=== PATIENT | male | born 1995 | race Caucasian/White ===

== ENCOUNTER 2025-08-16 03:40 | Emergency (ER) | payer OTHER, SELFPAY ==
[2025-08-16] VITALS (23 sets, daily range): BP systolic 101–130; BP diastolic 60–95; PULSE 75–122; RESP 8–18; TEMP 36.6; O2SAT 94–100; BMI 25.8
[2025-08-16] MEDS: dilTIAZem 5 MG/ML inj 20 MG IVP (05:31)
--- OUTSIDE RECORDS SUMMARY | 2025-08-16 05:50 | XMS_ITS | Clinical Summary ---
Author Organization [facility] Address [address] [place] [id number] Care Team Providers Care Blueberry Grower Name Role Phone Anabella Pickard MD Primary Care Provider + Allergies No known active allergies Medications MedicationSigDispense QuantityRefillsLast FilledStart DateEnd DateStatus propranoloL 20 mg tablet Indications:PalpitationsTake 1-2 times daily as needed for palpitations. 90 Tablet 5Active sertraline (ZOLOFT) 50 mg tablet Take 50 mg by mouth once daily.Active Active Problems No known active problems Immunizations ImmunizationAdministration DatesNext DueCOVID-19 vaccine (Moderna 100mcg/0.5mL) MD SPENSERV110/17/2020,10/17/2020,1DTP-HIB1996,1996,1996 DTaP03/25/2001,08/24/1997DTaP-HIB (TriHIBIT)1996,1996,1996HIB HbOC (HibTITER)08/24/1997Hepatitis B (Peds)1996,1996,1996, 1996Hepatitis B, Wkdfetkzjka1996Hib Conjugate, Bi[place]one30/17/1997 Human Papilloma Virus Hlhapnl7006/16/2013,01/27/2013,11/11/2012Inactivated Polio Tahgzis4303/25/2001Influenza A (H1N1), Inactivated (Age >=3 Years)07/27/2009 Influenza A (H1N1), Live Ztpbhwfpfw05/05/2012,05/03/2009,04/29/2008Influenza Virus, Uqlcoecltxn04/19/2022,06/13/2021,06/18/2019,08/11/2018,07/25/2017, 06/16/2013,06/27/2011,06/10/2010,07/27/2009,07/29/2007MMR10/12/2019,03/25/2001, 05/31/1997Meningococcal Mcv4, Unspecified Oksjknydknr80/06/2013,05/20/2007 Meningococcal Vaccine (Menactra)11/11/2012,05/20/2007Oral Polio Vaccine 1996,1996,1996Tdap03/02/2018,03/09/2007Varicella Vaccine 05/20/2007,05/31/1997 Family History Medical HistoryRelationNameCommentsArrhythmiaFatherHyperlipidemiaFather HypertensionFatherHeart attackMaternal GrandmotherHyperlipidemiaMother HypertensionMotherThyroid DiseaseMotherDiabetesOtherone of the grandparents RelationNameStatusCommentsFatherAliveMaternal GrandmotherMotherAliveOther Social History Tobacco UseTypesPacks/DayYears UsedDateSmoking Tobacco: NeverSmokeless Tobacco: Never Tobacco Cessation:Counseling Given: Not Answered Alcohol UseStandard Drinks/WeekCommentsYes0 (1 standard drink = 0.6 oz pure alcohol)moderatePHQ-2AnswerDate RecordedPHQ-2 TOTAL YHISN55710/10/2023Social ConnectionsAnswerDate RecordedDo you often feel lonely or isolated from those around you?Financial Resource StrainAnswerDate RecordedDifficulty of Paying Living Bzaaoeyh480/01/2024ifficulty of Paying Living ExpensesNot on file 08/08/2024Food InsecurityAnswerDate RecordedDo you worry your food will run out before you are able to buy more?Transportation NeedsAnswerDate RecordedDoes lack of transportation keep you from medical appointments?1 08/08/2024oes lack of transportation keep you from work, meetings or getting things that you need?Housing StabilityAnswerDate RecordedWhat is your housing situation today?UtilitiesAnswerDate RecordedDo you have trouble paying for utilities (for example, heat, electricity, water, phone)?1 08/08/2024Sex and Gender InformationValueDate RecordedSex Assigned at BirthNot on fileLegal MetAqkr8903/16/2024 7:04 AM CDTGender IdentityNot on fileSexual OrientationNot on file Last Filed Vital Signs Vital SignReadingTime TakenCommentsBlood Gssvyrwo957/9411/18/2024 5:39 PM CDT Thnse843511/18/2024 5:37 PM MVJYkrrrpkqttn55.3 ??C (99.1 ??F)11/18/2024 5:37 PM CDTRespiratory Rate--Oxygen Saturation--Inhaled Oxygen Concentration--Godggu10 kg (205 lb)11/18/2024 5:37 PM NRYKhnync920.2 cm (6' 0.5)08/09/2024 2:29 PM RELISH BLENDER Body Mass Index27.42110/10/2023 2:29 PM RELISH BLENDER Plan of Treatment Health MaintenanceDue DateLast DoneCommentsHIV for age 15-65002/22/2011Hepatitis C screening for age 18-7902/22/2014COVID-19 vaccine series (2024- season) , 10/17/2020, 09/18/2020Influenza Vaccine (#1)2025 07/27/2022, 06/13/2021, 06/18/2019, Additional history existsBMI (ht and wt on same day) for age 18+epression screening for age 12+ /10/2023, 03/22/2024Tetanus epytexd39, 03/09/2007 RSV vaccine for adults or (1 - 1-dose 75+ series)02/22/2071Hepatitis B series for 19+Vnnjzhume41/25/1997, 1996, 1996, Additional history existsHPV series for age 9-29Knazoaqdn31/09/2013, 01/27/2013, 11/11/2012 Pneumococcal series for age 6-49Aged OutNo longer eligible based on patient's age to complete this topic Care Teams Team MemberRelationshipSpecialtyStart DateEnd Date Anabella Pickard MD [address] [place] [address] [facility]
[2025-08-16 06:03] LABS: Hematocrit* 44.7 % (37.0-53.0); Hemoglobin* 15.4 gm/dL (13.5-17.5); Lymphocytes Absolute Auto 1.80 K/uL (0.90-2.90); Mean Corpuscular HGB Conc 35 gm/dL (32-36); Mean Corpuscular Hemoglobin 30 pg (26-34); Mean Corpuscular Volume 87 fL (80-100); Red Blood Count* 5.13 m/uL (4.30-5.90); White Blood Count* 5.81 K/uL (4.50-11.00)
[2025-08-16 06:04] LABS: Anion Gap 14 mEq/L (7-15); Blood Urea Nitrogen* 10 mg/dL (5-24); Carbon Dioxide* 20 mmol/L (20-32); Chloride* 105 mmol/L (96-114); Creatinine* 0.7 mg/dL (0.5-1.5); Estimated Glomerular Filt Rate 128 ml/min; Immature Granulocytes Abs Auto 0.00 K/uL (0.00-0.30); Immature Granulocytes Pct Auto 0.7 %; Potassium* 4.1 mmol/L (3.6-5.1); Slide Review Reflex No; Sodium* 139 mmol/L (135-149)
[2025-08-16 06:05] LABS: Calcium* 8.7 mg/dL (8.4-10.6); Ethanol* 0.02 % (0.01-0.03); Glucose* 99 mg/dL (60-115)
--- NOTE | 2025-08-16 06:28 | ED.GENADULT ---
HPI - General Adult General Chief complaint: Arrhythmia/Palpitations Stated complaint: Irregular Heartbeat Time Seen by Provider: 08/16/25 05:29 History of Present Illness HPI narrative: patient awoke around 0200 with rapid HR, per his apple watch rate of 177, denies chest pain, denies SOB. reports he has a hx of PVC that he takes propranolol PRN for, tried a dose when the symptoms started at 0200 with out rel(ie)f. 30-year-old young man presenting to the emergency department with concern of palpitations. Is not reporting Dizziness or lightheadedness. Does have a history of Palpitations and known PVCs. Has been given propranolol 20 mg and takes this twice daily. No other apparent arrhythmia history. Does admit to having quite a bit of alcohol last night. With significant other accompanies him here today had been trying to do a dry month. He woke this morning noting more intense palpitations and Watch said 177 for heart rate and was just not feeling very well. Does denies any other substances other than marijuana a few days ago. He does also smoke nicotine. 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 Was wondering if there is anything else he could be doing. Concerns expressed also of insurance not kicking in until the end of this year. Review of Systems Status of ROS: Reports: 6 or more systems reviewed and unremarkable except as noted in History and below [facility] Social History Do you use any of these nicotine containing products: None How often do you have a drink containing alcohol: monthly or less AUDIT-C Alcohol total score: 1 Non-prescribed substance use: denies use Exam Narrative: Exam Narrative: Ambulatory into the emergency department. Looks like he does not feel very good. Is easily conversant however. Breathing easily. Lungs are clear. Heart in elevated rate and irregularly irregular. Distant. Extremities are well perfused and without edema. Const: Vital Signs, click to edit/add: Vital Signs - 24 hr 08/16/25 03:40 08/16/25 03:50 08/16/25 05:32 Temperature 98 F Pulse Rate 87 Pulse Rate [Pulse Oximeter] 119 H Respiratory Rate 16 16 Blood Pressure 107/63 Blood Pressure [Ri ght Upper Arm] 130/95 H Pulse Oximetry 98 98 97 Oxygen Delivery Me thod Room Air 08/16/25 05:33 08/16/25 05:45 08/16/25 05:46 Temperature Pulse Rate 88 79 75 Pulse Rate [Pulse Oximeter] Respiratory Rate 8 L 16 Blood Pressure 106/60 Blood Pressure [Ri ght Upper Arm] Pulse Oximetry 97 97 94 Oxygen Delivery Me thod 08/16/25 06:00 08/16/25 06:02 08/16/25 06:16 Temperature Pulse Rate 76 93 91 Pulse Rate [Pulse Oximeter] Respiratory Rate 18 18 18 Blood Pressure 107/69 Blood Pressure [Ri ght Upper Arm] Pulse Oximetry 97 96 96 Oxygen Delivery Me thod 08/16/25 06:17 08/16/25 06:30 08/16/25 06:32 Temperature Pulse Rate 91 96 96 Pulse Rate [Pulse Oximeter] Respiratory Rate 16 16 Blood Pressure 115/67 110/75 Blood Pressure [Ri ght Upper Arm] Pulse Oximetry 96 97 97 Oxygen Delivery Me thod 08/16/25 06:45 08/16/25 06:47 08/16/25 06:50 Temperature Pulse Rate 94 92 93 Pulse Rate [Pulse Oximeter] Respiratory Rate 18 16 16 Blood Pressure 119/90 H Blood Pressure [Ri ght Upper Arm] Pulse Oximetry 97 97 98 Oxygen Delivery Me thod 08/16/25 07:00 08/16/25 07:02 08/16/25 07:15 Temperature Pulse Rate 90 94 122 H Pulse Rate [Pulse Oximeter] Respiratory Rate 16 16 16 Blood Pressure 120/85 Blood Pressure [Ri ght Upper Arm] Pulse Oximetry 98 100 99 Oxygen Delivery Me thod 08/16/25 07:17 08/16/25 07:30 08/16/25 07:32 Temperature Pulse Rate 101 H 113 H 98 Pulse Rate [Pulse Oximeter] Respiratory Rate 18 12 16 Blood Pressure 119/84 101/63 Blood Pressure [Ri ght Upper Arm] Pulse Oximetry 100 99 98 Oxygen Delivery Me thod 08/16/25 07:45 08/16/25 07:50 Temperature Pulse Rate 97 80 Pulse Rate [Pulse Oximeter] Respiratory Rate 18 16 Blood Pressure 119/77 Blood Pressure [Ri ght Upper Arm] Pulse Oximetry 100 97 Oxygen Delivery Me thod Documenting provider has reviewed patient's vital signs: yes Course Vital Signs Vital signs: Initial Vital Signs Temperature 98 F 08/16/25 03:40 Temperature Source Temporal Artery Scan 08/16/25 03:40 Pulse Rate 119 H 08/16/25 03:40 Respiratory Rate 16 08/16/25 03:40 Blood Pressure 130/95 H 08/16/25 03:40 Blood Pressure Mean 106 H 08/16/25 03:40 Blood Pressure Position Semi-Fowlers 08/16/25 03:40 Pulse Oximetry 98 08/16/25 03:40 Oxygen Delivery Method Room Air 08/16/25 03:40 Vital Signs Temperature 98 F 08/16/25 03:40 Pulse Rate 119 H 08/16/25 03:40 Respiratory Rate 16 08/16/25 03:40 Blood Pressure 130/95 H 08/16/25 03:40 Pulse Oximetry 98 08/16/25 03:40 Oxygen Delivery Method Room Air 08/16/25 03:40 Temperature 98 F 08/16/25 03:40 Pulse Rate 80 08/16/25 07:50 Respiratory Rate 16 08/16/25 07:50 Blood Pressure 119/77 08/16/25 07:50 Pulse Oximetry 97 08/16/25 07:50 Oxygen Delivery Method Room Air 08/16/25 03:40 Medications Administered Medications: Discontinued Medications Generic Name Dose Route Start Last Admin Trade Name Freq PRN Reason Stop Dose Admin Diltiazem HCl 20 mg 08/16/25 05:51 08/16/25 05:31 Diltiazem 5 Mg/Ml Inj IVP 08/16/25 05:52 20 mg ONCE ONE Administration Sodium Chloride 1,000 mls @ 1,000 mls/hr 08/16/25 05:51 08/16/25 06:30 0.9 % Sodium Chloride 1000 Ml IV 08/16/25 06:50 Infused .Q1H ONE Infusion Medical Decision Making [facility] Narrative Medical decision making narrative: Initial EKG independently reviewed by me does confirm atrial fibrillation with RVR at a rate of 137. PVCs are evident as well Placed on quality assurance monitor and oximetry. Monitoring on quality assurance monitor is throwing PVCs as well and these are symptomatic. These have been unifocal. Initiated IV fluids with normal saline and given 20 mg of diltiazem. Rate has slowed some but remains in elevated rate atrial fibrillation with PVCs. Labs are unremarkable with low normal magnesium. Is clear that onset began sometime overnight. Would be candidate for electrical cardioversion. First known atrial fibrillation. Anticipating replacing magnesium ahead of cardioversion. Awaiting support for cardioversion Informed consent obtained. Anesthesia now available, present. Luis was up to the bathroom and back for the 2nd or 3rd time and appears to have spontaneously converted when he got back to the bed. Repeat EKG independently reviewed by me at this time shows normal sinus rhythm at a rate of 75. Notably feels better. Already has propranolol. Only singular AFib episode with likely trigger being alcohol. Do not think needs change in medication management at this time. See patient discharge plan for further discussion Stay well hydrated with water or similar. No restrictions to activity at this time. Would message your primary care provider to review events of today and consider further evaluation. At this time continue your propranolol as prescribed. Take care with your alcohol consumption as discussed. A course do what you can to quit smoking as well. Might be some resources yet through [employer] -- see handout pamphlet. Should this atrial fibrillation recur, you can certainly try some of those maneuvers to increase intra-abdominal pressure that we discussed though I am not sure of effectivity for AFib as opposed to SVT. Should not hurt though. If you continue to have these symptoms, return to the emergency department. Lab Data Lab results reviewed: Yes I reviewed the patient's lab results Labs: Lab Results 08/16/25 Range/Units 04:46 WBC 5.81 (4.50-11.00) K/uL RBC 5.13 (4.30-5.90) m/uL Hgb 15.4 (13.5-17.5) gm/dL Hct 44.7 (37.0-53.0) % MCV 87 (80-100) fL MCH 30 (26-34) pg MCHC 35 (32-36) gm/dL Plt Count 327 (140-440) K/uL Neut % (Auto) 47.3 (42.0-72.0) % Lymph % (Auto) 31.5 (20-44) % [place] % (Auto) 12.2 H (0.0-11.0) % Eos % (Auto) 7.6 H (0.0-7.0) % Baso % (Auto) 0.7 (0.0-3.0) % Neut # (Auto) 2.70 (1.7-7.0) K/uL Lymph # (Auto) 1.80 (0.90-2.90) K/uL [place] # (Auto) 0.70 (0.00-0.90) K/UL Eos # (Auto) 0.40 (0.00-0.50) K/uL Baso # (Auto) 0.00 (0.00-0.30) K/uL Abs Immat Gran (auto) 0.00 (0.00-0.30) K/uL Imm/Tot Granulo (auto) 0.7 % Sodium 139 (135-149) mmol/L Potassium 4.1 (3.6-5.1) mmol/L Chloride 105 (96-114) mmol/L Carbon Dioxide 20 (20-32) mmol/L Anion Gap 14 (7-15) mEq/L BUN 10 (5-24) mg/dL Creatinine 0.7 (0.5-1.5) mg/dL Estimated GFR 128 ml/min Glucose 99 (60-115) mg/dL Calcium 8.7 (8.4-10.6) mg/dL Magnesium 1.7 (1.5-2.6) mg/dL Ethyl Alcohol 0.02 (0.01-0.03) % ECG Data Attestation: I personally reviewed and interpreted this ECG as follows: (Initial EKG shows atrial fibrillation with RVR at rate of 137. There are PVCs) Critical Care Time Critical Care Time Critical Care Time: Yes Attestation: The patient required my highest level preparedness to intervene emergently and I personally spent this critical care time directly and personally managing the patient. This critical care time included: Obtaining a history; Examining the patient; Pulse oximetry; Ordering and reviewing of studies; Arranging urgent treatment with development of a management plan; Evaluation of patients response to treatment; Frequent reassessment discussions with other providers. This critical care time was performed to assess and manage the high probability of imminent life-threatening deterioration that could result in multiorgan failure. It was exclusive of separate billable procedures and treating other patients and teaching time. Total Critical Care Time in Minutes: 30 Discharge Plan Discharge Clinical Impression: Atrial fibrillation with rapid ventricular response Patient Disposition: Home w/ Parent or Adult Condition: Improved Additional Instructions: Stay well hydrated with water or similar. No restrictions to activity at this time. Would message your primary care provider to review events of today and consider further evaluation. At this time continue your propranolol as prescribed. Take care with your alcohol consumption as discussed. A course do what you can to quit smoking as well. Might be some resources yet through [employer] -- see handout pamphlet. Should this atrial fibrillation recur, you can certainly try some of those maneuvers to increase intra-abdominal pressure that we discussed though I am not sure of effectivity for AFib as opposed to SVT. Should not hurt though. If you continue to have these symptoms, return to the emergency department. Follow Up/Referrals: Provider,Not a Local [Primary Care Provider, Family Practice] Stand Alone Forms: [employer] Info Instructions
== END 2025-08-16 08:39 | disposition home or self-care (01) ==
PROVIDERS: Emergency Provider Family Medicine
DX: I48.91 Unspecified atrial fibrillation (principal); F17.210 Nicotine dependence, cigarettes, uncomplicated; Z59.71 Insufficient health insurance coverage; Z87.898 Personal history of other specified conditions
CPT/HCPCS: 36415; 80048; 82077; 83735; 85025; 94761; 96361; 96374; 99284; 99291; J7030